=== PATIENT | female | born 1940 | race Caucasian/White ===

== ENCOUNTER 2020-03-27 11:40 | Outpatient (CLI) | payer OTHER, SELFPAY ==
--- NOTE | ~2020-03-27 | XR_ITS ---
XR hip RT min 2V DATE: 03/27/2020 12:16 INDICATION: Right hip pain. No injury. TECHNIQUE: AP and lateral views COMPARISON: None FINDINGS: Diffuse osteopenia. Mild osteitis pubis. The right sacroiliac joint is intact. Right hip joint space appears relatively p reserved. No fracture, dislocation, avascular necrosis or bone destruction of the right hip is evident. IMPRESSION: Osteopenia Mild osteitis pubis Reviewed, dictated and finalized at location A.
[2020-03-27 12:14] LABS: Hemoglobin A1C 6.2 % (<5.7)
[2020-03-27 12:16] LABS: Alanine Aminotransferase 26 U/L (4-35); Albumin Level 4.7 g/dL (3.5-5.1); Alkaline Phosphatase 67 U/L (38-126); Aspartate Amino Transferase 30 U/L (14-36); Bilirubin,Total 0.5 mg/dL (0.2-1.3); Blood Urea Nitrogen 19 mg/dL (7-17); Calcium 9.4 mg/dL (8.4-10.2); Carbon Dioxide 27 mmol/L (22-30); Chloride 101 mmol/L (98-107); Cholesterol 150 mg/dL (0-200); Estimated Glomerular Filt Rate 53; Glucose 111 mg/dL (65-105); HDL Direct 43 mg/dL; Potassium 3.8 mmol/L (3.4-5.0); Sodium 137 mmol/L (137-145); Triglycerides 219 mg/dL (<150)
[2020-03-27 12:25] LABS: Add Urine Microscopic? NO; Appearance Urine Clear (Clear); Bilirubin Urine Negative (Negative); Blood Urine Negative (Negative); Color Urine Yellow (Yellow); Glucose Urine UA Negative (Negative); Ketones Urine Negative (Negative); Leukocyte Esterase Ur Negative LEU/UL (Negative); Nitrate Urine Negative (Negative); Protein Urine Negative (Negative); Urobilinogen Urine Negative mg/dL (<2.0)
[2020-03-27 12:27] LABS: LDL Cholesterol Direct 71 mg/dL
[2020-03-27 12:47] LABS: Vitamin D 25 Hydroxy 48.7 ng/mL
== END 2020-03-27 11:41 | disposition home or self-care (01) ==
LOC: ANHLAB 11:41
PROVIDERS: PCP Internal Medicine; Visit Provider Internal Medicine
DX: M25.551 Pain in right hip (principal); N18.3 Chronic kidney disease, stage 3 (moderate); I10 Essential (primary) hypertension; E11.9 Type 2 diabetes mellitus without complications; E78.5 Hyperlipidemia, unspecified; R35.0 Frequency of micturition; E55.9 Vitamin D deficiency, unspecified; Z51.81 Encounter for therapeutic drug level monitoring
CPT/HCPCS: 36415; 73502; 80053; 80061; 81003; 82306; 83036

== ENCOUNTER 2020-06-26 15:31 | Outpatient (CLI) | payer OTHER, SELFPAY ==
--- NOTE | ~2020-06-26 | XR_ITS ---
EXAMINATION: XR lumbar spine 2-3V DATE: 06/26/2020 15:55 INDICATION: Dorsalgia, unspecified, low back pain TECHNIQUE: Anteroposterior and lateral views of the lumbar spine, and cone-down lateral view of the l umbosacral junction were obtained. COMPARISON: CT, 06/14/2015 FINDINGS: Bone alignment is normal. There is no fracture. There is moderate loss of intervertebral di sc space height at L4-5 and severe loss of intervertebral disc space height at L5-S1. The vertebral b alpesh heights are normal. There is moderate facet osteoarthritis of the lower lumbar spine. A moderate volume of colonic stool is present. The bowel gas pattern is normal. A gallstone is noted in the righ t upper quadrant. Calcified atherosclerosis is also noted. IMPRESSION: 1. Severe lumbar spondylosis without acute findings or significant interval change. Reviewed, dictated and finalized at location A. IMPRESSION: 1. Severe lumbar spondylosis without acute findings or significant interval enrrique nge.
== END 2020-06-26 15:32 | disposition home or self-care (01) ==
PROVIDERS: PCP Internal Medicine; Visit Provider Internal Medicine
DX: M47.896 Other spondylosis, lumbar region (principal)
CPT/HCPCS: 72100

== ENCOUNTER 2020-07-08 08:01 | Outpatient (CLI) | payer OTHER, SELFPAY ==
--- NOTE | ~2020-07-08 | MR_ITS ---
EXAMINATION: MR lumbar spine wo con DATE: 07/08/2020 08:53 INDICATION: Radiculopathy. Low back pain. TECHNIQUE: Magnetic resonance imaging (MRI) of the lumbar spine was performed without intravenous con trast. Sequences included sagittal T2-weighted FSE, sagittal T2-weighted FS FSE, sagittal T1-weighted FSE, and axial T2-weighted FSE. COMPARISON: CT abdomen dated 06/28/2015 and lumbar spine radiographs dated 06/26/2020 FINDINGS: Alignment is normal. Vertebral body heights are normal. Diffuse heterogeneous pattern of red and yell ow marrow. Severe disc height loss at L5-S1. Moderate disc height loss at L4-L5. Mild disc height los s at T11-T12 and L3-L4. Mild disc desiccation without significant disc height loss at L1-L2 and L2-L3 . The conus medullaris terminates at L2. There is normal signal in the caudal spinal cord. There are bilateral T2 hyperintense renal cysts as well as a 9 mm T2 hypointense proteinaceous/hemorrhagic cyst with corresponding increased density on prior CT. Paravertebral soft tissues are unremarkable. The f ollowing disc levels are specifically discussed: T12-L1: The disc does not extend beyond the endplate margin. There is mild left and moderate right fa cet joint osteoarthritis. There is no neural foraminal stenosis. There is no central canal stenosis. L1-L2: Minimal right paracentral disc protrusion. There is mild left and moderate right facet joint o steoarthritis. There is no neural foraminal stenosis. There is no central canal stenosis. L2-L3: Disc is minimally bulging. There is mild bilateral facet joint osteoarthritis. There is no saul ral foraminal stenosis. There is no central canal stenosis. L3-L4: Disc is bulging with superimposed annular fissure and central to right foraminal zone disc ext rusion with disc material extending couple millimeters cephalad and caudal to the level of the endpla kristofer. There is hypertrophy of the ligamentum flavum. There is moderate bilateral facet joint osteoart hritis. There is moderate bilateral neural foraminal stenosis. There is moderate central canal stenos is. L4-L5: Disc is bulging.. There is moderate to severe bilateral facet joint osteoarthritis. There is m oderate left and mild to moderate right neural foraminal stenosis. There is mild to moderate central canal stenosis. L5-S1: Disc is mildly bulging with an annular fissure. There is moderate bilateral facet joint osteoa rthritis. There is mild to moderate bilateral neural foraminal stenosis. There is mild central canal stenosis. IMPRESSION: 1. Mild upper to severe lower lumbar spondylosis. Reviewed, dictated and finalized at location A.
== END 2020-07-08 08:02 | disposition home or self-care (01) ==
PROVIDERS: PCP Internal Medicine; Visit Provider Nurse Practitioner Adult Health
DX: M47.26 Other spondylosis with radiculopathy, lumbar region (principal)
CPT/HCPCS: 72148

== ENCOUNTER 2020-12-04 10:10 | Outpatient (CLI) | payer OTHER, SELFPAY ==
[2020-12-04 11:03] LABS: Add Urine Microscopic? YES; Appearance Urine Clear (Clear); Bilirubin Urine Negative (Negative); Blood Urine Negative (Negative); Color Urine Yellow (Yellow); Glucose Urine UA Negative (Negative); Ketones Urine Negative (Negative); Leukocyte Esterase Ur Negative LEU/UL (Negative); Nitrate Urine Negative (Negative); Protein Urine 2+ mg/dL (Negative); Specific Grav Ur 1.012 (1.001-1.035); Squamous Epithelial Cell Urine Rare /hpf (Few); Urobilinogen Urine Negative mg/dL (<2.0); WBC Urine 0-3 /hpf
== END 2020-12-04 10:11 | disposition home or self-care (01) ==
LOC: ANHLAB 10:11
PROVIDERS: PCP Internal Medicine; Visit Provider Internal Medicine
DX: R30.0 Dysuria (principal)
CPT/HCPCS: 81001

== ENCOUNTER 2020-12-11 11:12 | Outpatient (CLI) | payer OTHER, SELFPAY ==
--- NOTE | ~2020-12-11 | XR_ITS ---
EXAMINATION: XR abdomen/kub 1V EXAM DATE: 12/11/2020 11:49 INDICATION: R10.2 - Pelvic and perineal pain urinary urgency with pain. TECHNIQUE: Frontal projection(s) of the abdomen for interpretation. Correlation is made to CT abdomen 2014. FINDINGS: Dense right upper lobe calcification is a gallstone. No calcifications identified overlying the renal contours, but they are partly obscured by colonic stool and gas. Moderate amount of coloni c stool and gas present. No small bowel dilation. Mild to moderate bony degenerative changes. There i s no organomegaly. Lung bases unremarkable. IMPRESSION: Cholelithiasis. Reviewed, dictated and finalized at location B. ER CRANE LADLE IMPRESSION: Cholelithiasis.
--- NOTE | ~2020-12-11 | US_ITS ---
EXAMINATION: US pelvic complete EXAM DATE: 12/11/2020 11:48 INDICATION: R10.2 - Pelvic and perineal pain. TECHNIQUE: Pelvic transabdominal sonogram was performed. There are multiple grayscale and Doppler im ages available for interpretation. There is no prior study for comparison. FINDINGS: Bladder is undistended. Uterus not identified. There is no free pelvic fluid. No adnexal ma ss was identified. IMPRESSION: Unremarkable exam. Uterus, ovaries not identified. Reviewed, dictated and finalized at location B. OLE CUTTER MACHINE
== END 2020-12-11 11:13 | disposition home or self-care (01) ==
PROVIDERS: PCP Internal Medicine; Visit Provider Internal Medicine
DX: R10.2 Pelvic and perineal pain (principal); K80.20 Calculus of gallbladder without cholecystitis without obstruction
CPT/HCPCS: 74018; 76856

== ENCOUNTER 2021-01-14 07:24 | Outpatient (CLI) | payer OTHER, SELFPAY ==
[2021-01-14 08:12] LABS: Hemoglobin A1C 5.5 % (<5.7)
[2021-01-14 08:13] LABS: Alanine Aminotransferase 19 U/L (4-35); Albumin Level 4.6 g/dL (3.5-5.1); Alkaline Phosphatase 62 U/L (38-126); Anion Gap 5 mmol/L (8-16); Aspartate Amino Transferase 24 U/L (14-36); Bilirubin,Total 0.5 mg/dL (0.2-1.3); Blood Urea Nitrogen 20 mg/dL (7-17); Calcium 9.3 mg/dL (8.4-10.2); Carbon Dioxide 31 mmol/L (22-30); Chloride 106 mmol/L (98-107); Cholesterol 146 mg/dL (0-200); Estimated Glomerular Filt Rate 53; Glucose 124 mg/dL (65-105); HDL Direct 45 mg/dL; Sodium 142 mmol/L (137-145); Triglycerides 140 mg/dL (<150)
[2021-01-14 08:24] LABS: LDL Cholesterol Direct 72 mg/dL
== END 2021-01-14 07:25 | disposition home or self-care (01) ==
PROVIDERS: PCP Internal Medicine; Visit Provider Nurse Practitioner
DX: E78.2 Mixed hyperlipidemia (principal); E11.9 Type 2 diabetes mellitus without complications
CPT/HCPCS: 36415; 80053; 80061; 83036

== ENCOUNTER 2021-06-28 09:53 | Outpatient (CLI) | payer OTHER, SELFPAY ==
[2021-06-28 10:41] LABS: Alanine Aminotransferase 21 U/L (4-35); Alkaline Phosphatase 58 U/L (38-126); Anion Gap 11 mmol/L (8-16); Aspartate Amino Transferase 27 U/L (14-36); Bilirubin,Total 0.5 mg/dL (0.2-1.3); Blood Urea Nitrogen 28 mg/dL (7-17); Calcium 10.4 mg/dL (8.4-10.2); Carbon Dioxide 30 mmol/L (22-30); Chloride 101 mmol/L (98-107); Cholesterol 163 mg/dL (0-200); Estimated Glomerular Filt Rate 53; Glucose 110 mg/dL (65-110); HDL Direct 44 mg/dL; Hemoglobin A1C 5.8 % (<5.7); Potassium 3.8 mmol/L (3.4-5.0); Sodium 142 mmol/L (137-145); Triglycerides 234 mg/dL (<150)
[2021-06-28 10:53] LABS: LDL Cholesterol Direct 86 mg/dL
[2021-06-28 11:24] LABS: Vitamin D 25 Hydroxy 43.8 ng/mL
== END 2021-06-28 09:54 | disposition home or self-care (01) ==
PROVIDERS: PCP Internal Medicine; Visit Provider Internal Medicine
DX: E78.5 Hyperlipidemia, unspecified (principal); E11.9 Type 2 diabetes mellitus without complications; E55.9 Vitamin D deficiency, unspecified; I10 Essential (primary) hypertension; Z51.81 Encounter for therapeutic drug level monitoring
CPT/HCPCS: 36415; 80053; 80061; 82306; 83036

== ENCOUNTER 2021-08-23 12:30 | Outpatient (RCR) | payer OTHER, SELFPAY ==
--- NOTE | 2021-07-12 14:28 | OTOPEVAL ---
OCCUPATIONAL THERAPY INITIAL EVALUATION REPORT 07/12/21 Thank you for referring Thao Castañeda to [facility] The patient is scheduled to be seen for therapy? 0-1x/week for 4 weeks. Please review, sign, date and return this plan of care ABEL. I agree with and certify that the following plan of care is medically necessary. Referring Physician Date Referring Provider: Stephanie Andrew, SELENA *OT Outpatient Evaluation Start: 07/12/21 13:30 Outpatient Past Medical History Past Medical History Source of Past Medical History Recalled from Previous Visit, Confirmed with Patient/Family Neurological History Hx Transient Ischemic Attacks (TIA) Yes Cardiovascular History Hx Hypertension Yes Respiratory History Hx Respiratory Disorders No Significant History Gastrointestinal History Hx Gastrointestinal Disorders No Significant History Genitourinary History Hx Genitourinary Disorders No Significant History Endocrine History Hx Diabetes Yes: Type II Evaluation Information Problem Diagnosis Trigger finger Subjective Information Patient reports trigger finger Query Text:As Reported By Patient/ symptoms in the right middle Family finger. States its been going on for about a month. Notes triggering happens multiple times a day when she casing in line feeder. For example, when changing sheets, picking up laundry, etc. Prior Level of Function Activity Level (Last 3 Months) Hand Dominance Right Activity of Daily Living Ability Independent Pain Assessment Timing of Pain Assessment Timing of Pain Assessment Assessment Pain Scale Pain Scale Used Numeric (1 - 10) Self Report Pain Assessment Right Hand(s) Reported Pain Level 0 Lowest Pain Intensity 0 Greatest Pain Intensity 6 Pain Score Pain Score 0: Self Report Additional Pain Score Comments 6/10 when the finger triggers. Patient reports this happens multiple times a day. Upper Extremity Range of Motion Finger Range of Motion Left Reason Not Measured WNL/Left Right Finger Range of Motion Comments Full fist intact. Hook fist: 2cm gap with middle finger. Palpation Assessment Palpation Palpation Tender, palpable nodule at the A1 domo. Splint/Brace/Cast Assessment Splint and Bracing Assessment Right Finger, Middle Fabrication Clinician Made Splint/Brace/Cast Comments MCP immobilizer Reason For Splint/Brace/Cast Optimal Positioning,Pain
--- NOTE | 2021-08-09 11:02 | OTOPEVAL ---
OCCUPATIONAL THERAPY RE-EVALUATION AND POC UPDATE 08/09/21 Thao presents for OT re-evaluation following 1 month of hand therapy. OT hand been focusing on immobilizatio via splinting, thermal modalities, and active/passive ROM to help improve flexibility and reduce inflammation of the flexor tendon. She no longer has a palpable nodule at the A1 domo, but does have intermittent instances of triggering. This has greatly improved from several instances of triggering per day at the start of care. Continued skilled OT indicated for an additional month to continue to use modalities for inflammation reduction, modifications of her splint schedule, and eventually progression to some gentle strengthening as the tendon allows. Thank you for referring Thao Castañeda to [facility].? The patient is scheduled to be seen for continued occupational therapy? 0-1x/week for 4 weeks. Please review, sign, date and return this plan of care ABEL. I agree with and certify that the following plan of care is medically necessary. Referring Physician Date Referring Provider: Stephanie Andrew, MATEUSC *OT Outpatient Re-Evaluation Start: 07/12/21 13:30 Problem Diagnosis Trigger finger Subjective Information Patient reports that she only Query Text:As Reported By Patient/ have symptoms of triggering a Family few times a week compared to several times a day at the start of care. She has been wearing an MCP immobilizer to help rest the flexor tendon at the A1 domo. She wears the splint when doing gross gripping tasks such as laundry and changing sheets. She verbalizes good compliance with the HEP. Pain Assessment Timing of Pain Assessment Timing of Pain Assessment Re-assessment Pain Scale Pain Scale Used Numeric (1 - 10) Self Report Pain Assessment Right Hand(s) Reported Pain Level 0 Lowest Pain Intensity 0 Greatest Pain Intensity 3 Pain Score Pain Score 0: Self Report Additional Pain Score Comments Pain decreased from 6/10. No pain at rest, just when the finger gets stuck. Upper Extremity Range of Motion Finger Range of Motion Right Finger Range of Motion Comments Full fist intact. Hook fist has returned to normal limits. At the start of care she had a 2 cm gap with the middle finger. Hand Equine Manager/Pinch Strength Assessment Hand Left Equine Manager Strength (lbs) 33.66 Palmar Pinch Strength (lbs) 3 Right Equine Manager Strength (lbs) 27.33 Palmar Pinch Strength (lbs) 3.33 Hand Equine Manager/Pinch Strength Comments No pain or triggering with
--- NOTE | 2021-09-06 12:42 | PCOTNOTE ---
OCCUPATIONAL THERAPY DISCHARGE NOTIFICATION 09/06/21 Patient:Thao Castañeda Date of :1940 Thao was initially evaluated by OT on 07/12/21 to begin treatment for trigger finger. She was seen 1x/week for 7 weeks. Treatments consisted of splinting, modalities, ROM, and strengthening. For the last 2 weeks the patient has found that she has not needed to wear her splint and she is able to use her hand for all ADLs without any signs of triggering. Please refer to most recent progress note, dated 08/09/21, for more detailed findings. We have decided to cancel the formal OT re-evaluation as she no longer is experiencing symptoms. Discussed with the patient that if her symptoms return, she should begin to wear her splint again and make an appointment with an orthopedic MD for injections. She verbalizes excellent understanding of all materials. D/C with patient independent with HEP. The goals have been met. Thank you for referring this patient to [facility]. Please review, sign, date and return this discharge summary ABEL. I have been updated about the patient's current status and I agree with discharge from the above service at this time. Referring Physician Date Referring Provider: Stephanie Andrew, MATEUSC
== END 2021-09-10 09:55 | disposition home or self-care (01) ==
LOC: ANHOT 12:30
PROVIDERS: PCP Internal Medicine; Visit Provider Nurse Practitioner
DX: M65.30 Trigger finger, unspecified finger (principal)
CPT/HCPCS: 97018; 97035; 97110; 97140; 97165; L3933

== ENCOUNTER 2021-09-19 09:05 | Outpatient (CLI) | payer OTHER, SELFPAY ==
--- NOTE | ~2021-09-19 | US_ITS ---
US axilla BI DATE: 09/19/2021 09:45 INDICATION: Bilateral axillary lymph nodes TECHNIQUE: Real time imaging of both axillary areas COMPARISON: None FINDINGS: Bilateral axillary lymph nodes are noted, with relatively uniform homogeneous echotexture a nd cortical thickness, without any suspicious sonographic findings. These measure up to 2.1 x 0.9 cm on the right and up to 2.0 x 1.0 cm on the left. IMPRESSION: Nonspecific bilateral sonographically unremarkable axillary lymph nodes Reviewed, dictated and finalized at Location A. Reviewed, dictated and finalized at location A. N ASSISTANT IMPRESSION: Nonspecific bilateral sonographically unremarkable axillary lymph n odes
== END 2021-09-19 09:06 | disposition home or self-care (01) ==
LOC: ANHIMG 09:06
PROVIDERS: PCP Internal Medicine; Visit Provider Internal Medicine
DX: R59.0 Localized enlarged lymph nodes (principal); R93.89 Abnormal findings on diagnostic imaging of other specified body structures
CPT/HCPCS: 76882

== ENCOUNTER 2022-01-07 07:19 | Outpatient (CLI) | payer OTHER, SELFPAY ==
[2022-01-07 08:22] LABS: Hemoglobin A1C 5.8 % (<5.7)
[2022-01-07 08:24] LABS: Alanine Aminotransferase 18 U/L (4-35); Albumin Level 4.7 g/dL (3.5-5.1); Alkaline Phosphatase 61 U/L (38-126); Anion Gap 8 mmol/L (8-16); Aspartate Amino Transferase 26 U/L (14-36); Bilirubin,Total 0.5 mg/dL (0.2-1.3); Blood Urea Nitrogen 23 mg/dL (7-17); Calcium 9.3 mg/dL (8.4-10.2); Carbon Dioxide 30 mmol/L (22-30); Chloride 103 mmol/L (98-107); Cholesterol 168 mg/dL (0-200); Estimated Glomerular Filt Rate 53; Glucose 136 mg/dL (65-110); HDL Direct 40 mg/dL; Potassium 3.9 mmol/L (3.4-5.0); Sodium 141 mmol/L (137-145); Triglycerides 184 mg/dL (<150)
[2022-01-07 08:31] LABS: Creatinine Urine 38.7 mg/dL
[2022-01-07 08:35] LABS: MALB Creatinine Ratio 81.4 mg/g (0-30); Microalbumin Urine Random 31.5 mg/L (0-16.7)
[2022-01-07 08:36] LABS: LDL Cholesterol Direct 77 mg/dL
[2022-01-07 08:43] LABS: Vitamin D 25 Hydroxy 83.9 ng/mL
== END 2022-01-07 07:20 | disposition home or self-care (01) ==
PROVIDERS: PCP Internal Medicine; Visit Provider Nurse Practitioner
DX: E78.2 Mixed hyperlipidemia (principal); E11.9 Type 2 diabetes mellitus without complications; E55.9 Vitamin D deficiency, unspecified
CPT/HCPCS: 36415; 80053; 80061; 82043; 82306; 83036

== ENCOUNTER 2022-07-18 07:25 | Outpatient (CLI) | payer OTHER, SELFPAY ==
[2022-07-18 07:52] LABS: Alanine Aminotransferase 22 U/L (6-35); Albumin Level 4.7 g/dL (3.5-5.1); Alkaline Phosphatase 58 U/L (38-126); Anion Gap 11 mmol/L (8-16); Aspartate Amino Transferase 28 U/L (14-36); Bilirubin,Total 0.6 mg/dL (0.2-1.3); Blood Urea Nitrogen 26 mg/dL (7-17); Calcium 9.5 mg/dL (8.4-10.2); Carbon Dioxide 28 mmol/L (22-30); Chloride 102 mmol/L (98-107); Cholesterol 144 mg/dL (0-200); Estimated Glomerular Filt Rate 47; Glucose 134 mg/dL (65-110); HDL Direct 45 mg/dL; Potassium 4.1 mmol/L (3.4-5.0); Sodium 141 mmol/L (137-145); Triglycerides 123 mg/dL (<150)
[2022-07-18 08:03] LABS: LDL Cholesterol Direct 67 mg/dL
[2022-07-18 09:21] LABS: Vitamin D 25 Hydroxy 88.6 ng/mL
[2022-07-18 09:36] LABS: Hemoglobin A1C 6.1 % (<5.7)
== END 2022-07-18 07:26 | disposition home or self-care (01) ==
PROVIDERS: PCP Internal Medicine; Visit Provider Internal Medicine
DX: E78.5 Hyperlipidemia, unspecified (principal); I10 Essential (primary) hypertension; E55.9 Vitamin D deficiency, unspecified; E11.9 Type 2 diabetes mellitus without complications
CPT/HCPCS: 36415; 80053; 80061; 82306; 83036

== ENCOUNTER 2022-11-07 15:49 | Outpatient (CLI) | payer OTHER, SELFPAY ==
[2022-11-07 16:05] LABS: Hematocrit 38.2 % (37.0-47.0); Hemoglobin 12.8 g/dL (12.0-15.0); Immature Platelet Fraction Pct 3.7 % (0.9-11.2); Mean Corpuscular HGB Conc 33.5 g/dl (32-36); Mean Corpuscular Hemoglobin 30.9 pg (26-34); Mean Corpuscular Volume 92.3 fl (80-100); Platelet Count Result 143 k/mm3 (150-375); Red Blood Count 4.14 M/mm3 (4.2-5.4); Red Cell Distribution Width 13.2 % (11.5-14.5); White Blood Count 21.3 K/mm3 (4.5-10.0)
[2022-11-07 16:15] LABS: Alanine Aminotransferase 19 U/L (6-35); Albumin Level 4.6 g/dL (3.5-5.1); Alkaline Phosphatase 58 U/L (38-126); Anion Gap 7 mmol/L (8-16); Aspartate Amino Transferase 27 U/L (14-36); Bilirubin,Total 0.4 mg/dL (0.2-1.3); Blood Urea Nitrogen 27 mg/dL (7-17); Calcium 9.2 mg/dL (8.4-10.2); Carbon Dioxide 30 mmol/L (22-30); Chloride 99 mmol/L (98-107); Cholesterol 144 mg/dL (0-200); Estimated Glomerular Filt Rate 53; Glucose 122 mg/dL (65-110); HDL Direct 34 mg/dL; Potassium 3.5 mmol/L (3.4-5.0); Sodium 136 mmol/L (137-145); Triglycerides 303 mg/dL (<150)
[2022-11-07 16:25] LABS: Eosinophils Absolute Manual 0.21 K/mm3 (0.02-0.5); Eosinophils Percent Manual 1 % (0-4); LDL Cholesterol Direct 62 mg/dL; Lymphocytes Absolute Manual 17.25 K/mm3 (1.1-4.5); Lymphocytes Percent Manual 81 % (18-44); Monocytes Absolute Manual 0.42 K/mm3 (0.1-0.90); Monocytes Percent Manual 2 % (3-9); Neutrophils Percent Manual 16 % (46-73); Total Cells Counted 100
[2022-11-07 16:27] LABS: Atypical Lymphocytes Present; Platelet Estimate Adequate (Adequate); Schistocytes None Seen (NORMAL)
[2022-11-07 16:28] LABS: Smudge Cells MODERATE
[2022-11-07 16:38] LABS: Hemoglobin A1C 5.6 % (<5.7)
== END 2022-11-07 15:50 | disposition home or self-care (01) ==
PROVIDERS: PCP Internal Medicine; Visit Provider Nurse Practitioner
DX: C91.10 Chronic lymphocytic leukemia of B-cell type not having achieved remission (principal); E78.5 Hyperlipidemia, unspecified; R73.03 Prediabetes
CPT/HCPCS: 36415; 80053; 80061; 83036; 85025; 85055

== ENCOUNTER 2023-04-09 02:42 | Day surgery (SDC) | payer OTHER, SELFPAY ==
[2023-03-24 14:12] VITALS: BMI 24.5
[2023-04-09 07:21] VITALS: BP 156/66; PULSE 80; RESP 20; TEMP 36.5; O2SAT 98; BMI 24.0
[2023-04-09] MEDS: LACTATED RINGERS 1,000 ML 150 ML IV CONT (07:31)
--- NOTE | 2023-04-09 08:05 | PM.HPGS ---
History of Present Illness History of Present Illness Consent: Risks, benefits, and alternatives have been discussed and questions answered. Patient agrees to proceed with procedure. Chief complaint: positive cologuard test Narrative: Thao Castañeda is a 82 year old female Presents for screening colonoscopy. Patient recently had Cologuard test that was found to be positive. Patient reports her current weight appetite and bowel movements are normal. She denies abdominal pain. She has had no bleeding. Family history noncontributory. Review of Systems Review of Systems: Review of systems noncontributory. [facility] Past Medical History Medical History Chronic kidney disease, stage 3 (moderate) (05/19/19) Essential (primary) hypertension Hx-TIA (transient ischemic attack) Mixed hyperlipidemia Trigger finger, right middle finger Type 2 diabetes mellitus without complications Surgical History Surgical History H/O: hysterectomy Family History Family History Sibling Hypertension Family history of elevated blood lipids Family history of malignant neoplasm of bone Patient's brother is Mother Hypertension Family history of dementia Patient's mother is Father Hypertension Family history of elevated blood lipids Patient's father is Family history of kidney disease Family history of heart disease in male family member before age 55 Social History Social History Smoking status: Never smoker Second hand tobacco smoke exposure: No Alcohol intake: current Alcohol use details: 2 per month Substance use: never Substance use type: does not use Lack of Transportation: No Lack of Food: Never True Current Housing: I Have Housing Concerned About Future Housing: No Difficulty Paying Gas/Electric Bills: No Difficulty Paying for Meds: No Currently Unemployed: No Education: High School Diploma/GED Difficulty w/ Childcare or Family Care: No Living arrangements: with family Spiritual care concerns: No Meds Home Medications and Allergies Home Medications Medication Instructions Recorded Confirmed Type aspirin 81 mg tablet,delayed 81 mg PO DAILY 12/16/19 03/24/23 History release (Adult Low Dose Aspirin) [id number]-[id number]-[id number] tablet 1 tablet PO DAILY 01/02/21 03/24/23 History biotin 1 mg capsule 1 mg PO TID 11/05/22 03/24/23 History hydrochlorothiazide 25 mg tablet See Rx Instructions .Route 11/07/22 03/24/23 Rx .COMPLEX #90 ea lovastatin 40 mg tablet See Rx Instructions .Route 11/07/22 03/24/23 Rx .COMPLEX #90 tabs losartan 100 mg tablet See Rx Instructions .Route 12/08/22 03/24/23 Rx .COMPLEX #90 tabs carvedilol 25 mg tablet See Rx Instructions .Route 03/26/23 04/09/23 Rx .COMPLEX #180 tabs Allergies Allergy/AdvReac Type Severity Reaction Status Date / Time No Known Allergies Allergy Verified 04/09/23 07:17 Vital Signs Vital Signs - 24 hr 04/09/23 07:21 Temperature 97.7 F Pulse Rate 80 Respiratory Rate 20 Blood Pressure 156/66 H Pulse Oximetry 98 Oxygen Delivery Room Air Exam Narrative: Physical exam reveals patient to be alert. Vital signs stable. HEENT exam is unremarkable. Patient is anicteric. Lungs are clear to auscultation and percussion. Heart is without murmur or extra sounds. Abdomen bowel sounds are present soft nontender with no organomegaly. Digital external rectal exam is normal. Assessment and Plan Assessment and plan (1) Positive colorectal cancer screening using Cologuard test: Code(s): R19.5 - Other fecal abnormalities Status: Acute Assessment and Plan: Patient found to have a positive Cologuard test. For this reason col
--- NOTE | 2023-04-09 08:19 | WPDANESEPPF ---
Anes - Initial Pre Proc Eval Procedure: Operation Date: 04/09/23 08:30 Proposed Procedures p Colonoscopy - Galindo Singh MD Date/Time: 04/09/23 08:19 Surgeon: Galindo Singh MD Pre Op Diagnosis: positive cologuard test Patient Data Age: 82 Gender: F Height: 1.6 m Weight: 61.6 kg Last Vital Signs Temp 97.7 F 04/09/23 07:21 Pulse 80 04/09/23 07:21 Resp 20 04/09/23 07:21 BP 156/66 H 04/09/23 07:21 Pulse Ox 98 04/09/23 07:21 O2 Del Method Room Air 04/09/23 07:21 Allergies Allergy/AdvReac Type Severity Reaction Status Date / Time No Known Allergies Allergy Verified 04/09/23 07:17 Home Medications Medication Instructions Recorded Confirmed Type aspirin 81 mg tablet,delayed 81 mg PO DAILY 12/16/19 03/24/23 History release (Adult Low Dose Aspirin) rsxywctjwidg-vtxvegij-pmyzxw tablet 1 tablet PO DAILY 01/02/21 03/24/23 History biotin 1 mg capsule 1 mg PO TID 11/05/22 03/24/23 History hydrochlorothiazide 25 mg tablet See Rx Instructions .Route 11/07/22 03/24/23 Rx .COMPLEX #90 ea lovastatin 40 mg tablet See Rx Instructions .Route 11/07/22 03/24/23 Rx .COMPLEX #90 tabs losartan 100 mg tablet See Rx Instructions .Route 12/08/22 03/24/23 Rx .COMPLEX #90 tabs carvedilol 25 mg tablet See Rx Instructions .Route 03/26/23 04/09/23 Rx .COMPLEX #180 tabs Patient hx anesthesia problems: none Family hx anesthesia problems: none Results Review: All pre-operative results and documents have been reviewed as part of the pre-operative evaluation. [facility] Past Medical History Medical History Chronic kidney disease, stage 3 (moderate) (05/19/19) Essential (primary) hypertension Hx-TIA (transient ischemic attack) Mixed hyperlipidemia Trigger finger, right middle finger Type 2 diabetes mellitus without complications Surgical History Surgical History H/O: hysterectomy Family History Family History Sibling Hypertension Family history of elevated blood lipids Family history of malignant neoplasm of bone Patient's brother is Mother Hypertension Family history of dementia Patient's mother is Father Hypertension Family history of elevated blood lipids Patient's father is Family history of kidney disease Family history of heart disease in male family member before age 55 Social History Social History Smoking status: Never smoker Second hand tobacco smoke exposure: No Alcohol intake: current Alcohol use details: 2 per month Substance use: never Substance use type: does not use Lack of Transportation: No Lack of Food: Never True Current Housing: I Have Housing Concerned About Future Housing: No Difficulty Paying Gas/Electric Bills: No Difficulty Paying for Meds: No Currently Unemployed: No Education: High School Diploma/GED Difficulty w/ Childcare or Family Care: No Living arrangements: with family Spiritual care concerns: No Anes - Eval Final PreProcedure Day of Procedure 04/09/23 08:19 Patient weight: normal Heart: regular rate and rhythm Lungs: clear to auscultation Airway: Mallampati scale class II Neurological: alert and oriented Last oral intake: >/= 8 hours ASA classification: III Emergent: no Anesthetic plan: proceed Anesthesia type and monitoring: general GIVS and standard monitoring Results Review: All pre-operative results and documents have been reviewed as part of the pre-operative evaluation. Informed Consent: The patient's anesthetic plan and its attendant risks and benefits were discussed with the patient/family/POA. Questions were solicited and answers provided to the satisfaction of the patient/family/POA.
[2023-04-09 09:32] VITALS: BP 115/58; PULSE 69; RESP 18; O2SAT 97
[2023-04-09 09:42] VITALS: BP 128/65; PULSE 70; RESP 18; O2SAT 96
[2023-04-09 09:52] VITALS: BP 147/72; PULSE 64; RESP 18; O2SAT 97
== END 2023-04-09 10:03 | disposition home or self-care (01) ==
PROVIDERS: PCP Family Medicine; Visit Provider Internal Medicine Gastroenterology
PROC: 0DJD8ZZ Inspection of Lower Intestinal Tract, Via Natural or Artificial Opening Endoscopic (ICD-10-PCS; CPT 45378; principal; 2023-04-09 08:30)
DX: R19.5 Other fecal abnormalities (principal); D12.2 Benign neoplasm of ascending colon; K63.5 Polyp of colon; K57.30 Diverticulosis of large intestine without perforation or abscess without bleeding; K64.8 Other hemorrhoids; I12.9 Hypertensive chronic kidney disease with stage 1 through stage 4 chronic kidney disease, or unspecified chronic kidney disease; E11.22 Type 2 diabetes mellitus with diabetic chronic kidney disease; N18.30 Chronic kidney disease, stage 3 unspecified; E78.2 Mixed hyperlipidemia; Z86.73 Personal history of transient ischemic attack (TIA), and cerebral infarction without residual deficits; Z79.82 Long term (current) use of aspirin
CPT/HCPCS: 45385; 88305; J2704; J7120

== ENCOUNTER 2023-05-04 15:39 | Outpatient (CLI) | payer OTHER, SELFPAY ==
--- NOTE | ~2023-05-04 | XR_ITS ---
EXAMINATION: XR ankle LT 2V, XR tibia fibula LT 2V DATE: 05/04/2023 16:01 INDICATION: Swelling and bruising at the mid left lower leg and ankle TECHNIQUE: 1. Anteroposterior and lateral views of the left lower leg were obtained. 2. Anteroposterior and lateral views of the left ankle were obtained. COMPARISON: None. FINDINGS: Bone alignment is normal. No fracture. Joint spaces at the left knee, ankle and mid and hindfoot appe ar relatively preserved. Small Achilles and plantar calcaneal spurs. Mild soft tissue swelling about the ankle and distal lower leg. No ankle joint effusion. IMPRESSION: 1. Small Achilles and plantar calcaneal spurs. No acute osseous abnormality. Reviewed, dictated and finalized at location B. IMPRESSION: 1. Small Achilles and plantar calcaneal spurs. No acute osseous abnormality.
== END 2023-05-04 15:40 | disposition home or self-care (01) ==
LOC: ANHIMG 15:44
PROVIDERS: PCP Family Medicine; Visit Provider Nurse Practitioner Family
DX: S99.919A Unspecified injury of unspecified ankle, initial encounter (principal); X58.XXXA Exposure to other specified factors, initial encounter; M77.32 Calcaneal spur, left foot
CPT/HCPCS: 73590; 73600

== ENCOUNTER 2023-06-05 16:03 | Outpatient (CLI) | payer OTHER, SELFPAY ==
--- NOTE | ~2023-06-05 | US_ITS ---
EXAMINATION: US carotid duplex BI DATE: 06/05/2023 16:59 INDICATION: Carotid bruit. Other specified symptoms and signs involving the circulatory system. TECHNIQUE: Grayscale, color Doppler, and pulsed Doppler images of the cervical carotid arteries were obtained. The degree of vessel stenosis is placed in one of the following categories: normal, <50%, 5 0-69%, >=70% but less than near-occlusion, near-occlusion, or total occlusion. Note that percent sten osis relative to normal distal artery lumen diameter is indirectly measured from velocity measurement s as described by Wally, et al. Radiology 2003; 229:340-346. COMPARISON: Ultrasound 02/26/2015 FINDINGS: RIGHT: The right common carotid artery (CCA) peak systolic velocity (PSV) is 91 cm/s. The right internal car otid artery (ICA) PSV is 77 cm/s. The right ICA end-diastolic velocity (EDV) is 21 cm/s. The right IC A/CCA PSV ratio is 0.8. Grayscale and color Doppler images yield an estimate of <50% diameter reducti on from plaque in the ICA. There is antegrade flow in the right vertebral artery. LEFT: The left CCA PSV is 93 cm/s. The left ICA PSV is 81 cm/s. The left ICA EDV is 20 cm/s. The left ICA/C CA PSV ratio is 0.9. Grayscale and color Doppler images yield an estimate of <50% diameter reduction from plaque in the ICA. There is antegrade flow in the left vertebral artery. IMPRESSION: 1. <50% stenosis in the right internal carotid artery. 2. <50% stenosis in the left internal carotid artery. Reviewed, dictated and finalized at location E.
== END 2023-06-05 16:04 | disposition home or self-care (01) ==
PROVIDERS: PCP Family Medicine; Visit Provider Nurse Practitioner Family
DX: R09.89 Other specified symptoms and signs involving the circulatory and respiratory systems (principal); I65.23 Occlusion and stenosis of bilateral carotid arteries
CPT/HCPCS: 93880

== ENCOUNTER 2023-07-03 11:45 | Outpatient (CLI) | payer OTHER, SELFPAY ==
--- NOTE | ~2023-07-03 | DEXA_ITS ---
Bone Density Report Name: ZEINA HENRIQUEZ Age: 82 Sex: Female Ethnicity: White Date of : 1940 Indication: osteopenia; height loss; cancer; hysterectomy; postmenopausal Referring Provider: CATHERINE BUCHANAN Study: Bone densitometry was performed. Exam Date: July 03, 2023 Accession number: [id number] Bone Density: Region BMD T-score Z-score Classification AP Spine(L1-L4) 1.023 -0.2 2.6 Normal Femoral Neck (Left) 0.500 -3.1 -0.6 Osteoporosis Total Hip (Left) 0.631 -2.5 -0.2 Osteoporosis Femoral Neck (Right) 0.526 -2.9 -0.4 Osteoporosis Total Hip (Right) 0.672 -2.2 0.1 Osteopenia Total Hip Mean 0.651 -2.4 -0.1 Osteopenia World Health Organization criteria for BMD impression classify patients as: Normal (T-score at or above -1.0), Osteopenia (T-score between -1.0 and -2.5), or Osteoporosis (T-score at or below -2.5). 10-year Fracture Risk: FRAX not reported because: Some T-score for Spine Total or Hip Total or Femoral Neck at or below -2.5 Previous Exams: Region Exam Age BMD T-score BMD Change BMD Change Date g/cm2 vs Baseline vs Previous AP Spine (L1-L4) 07/03/2023 82 1.023 -0.2 0.117 (12.9%)* 0.117 (12.9%)* 12/28/2018 78 0.906 -1.3 Total Hip(Left) 07/03/2023 82 0.631 -2.5 -0.043 (-6.4%) -0.043 (-6.4%) 12/28/2018 78 0.674 -2.2 Total Hip(Right) 07/03/2023 82 0.672 -2.2 -0.091 (-11.9% -0.091 (-11.9% 12/28/2018 78 0.762 -1.5 *Denotes significance at 95% confidence level, LSC for AP Spine = 0.022 g/cm2, LSC for Total Hip = 0.027 g/cm2 Clinical Information Provided by Patient: Has the following medical conditions: Cancer, Hysterectomy Patient maximum height was 64.5 Menopause Age: 40 Onset of menses at age 9 Number of children 5 Impression: The patient has osteoporosis, based on the Left Femoral Neck T-score. The BMD for the Total Hip(Left) decreased, changing by -6.4% since the last DXA exam. The BMD for the Total Hip(Right) decreased, changing by -11.9% since the last DXA exam. Discussion: INCREASED RISK OF FRACTURE. BONE DENSITY IS UNDESIRABLY LOW AT ONE OR MORE SKELETAL SITES, CONSISTENT WITH POSTMENOPAUSAL OSTEOPOROSIS. This patient's lowest T-score meets the World Health Organization's (WHO) criteria for osteoporosis at one or more sites (T-score -2.5 or below). In untreated patients, the risk of osteoporotic fracture increases approximately two-fold for each 1.0 SD decrease in T-score. Low bone dens
== END 2023-07-03 11:46 | disposition home or self-care (01) ==
LOC: ANHIMG 11:46
PROVIDERS: PCP Family Medicine; Visit Provider Family Medicine
DX: Z78.0 Asymptomatic menopausal state (principal); M81.0 Age-related osteoporosis without current pathological fracture; M85.851 Other specified disorders of bone density and structure, right thigh
CPT/HCPCS: 77080

== ENCOUNTER 2023-08-24 08:42 | Outpatient (CLI) | payer OTHER, SELFPAY ==
[2023-08-24 09:44] LABS: Hemoglobin A1C 5.9 % (<5.7)
== END 2023-08-24 08:43 | disposition home or self-care (01) ==
PROVIDERS: PCP Family Medicine; Visit Provider Family Medicine
DX: R73.03 Prediabetes (principal)
CPT/HCPCS: 36415; 83036

== ENCOUNTER 2024-03-23 07:37 | Outpatient (CLI) | payer OTHER, SELFPAY ==
[2024-03-23 08:43] LABS: Hemoglobin A1C 5.9 % (<5.7)
[2024-03-23 08:53] LABS: Vitamin D 25 Hydroxy 90.2 ng/mL
[2024-03-23 09:04] LABS: Alanine Aminotransferase 15 U/L (6-35); Albumin Level 4.5 g/dL (3.5-5.1); Alkaline Phosphatase 55 U/L (38-126); Anion Gap 9 mmol/L (4-12); Aspartate Amino Transferase 23 U/L (14-36); Bilirubin,Total 0.7 mg/dL (0.2-1.3); Blood Urea Nitrogen 27 mg/dL (7-17); Calcium 9.2 mg/dL (8.4-10.2); Carbon Dioxide 26 mmol/L (22-30); Chloride 105 mmol/L (98-107); Cholesterol 143 mg/dL (0-200); Estimated Glomerular Filt Rate 53; Glucose 125 mg/dL (65-110); HDL Direct 41 mg/dL; Potassium 3.9 mmol/L (3.4-5.0); Sodium 140 mmol/L (137-145); Triglycerides 133 mg/dL (<150)
[2024-03-23 09:15] LABS: LDL Cholesterol Direct 79 mg/dL
== END 2024-03-23 07:38 | disposition home or self-care (01) ==
PROVIDERS: PCP Family Medicine; Visit Provider Family Medicine
DX: C91.10 Chronic lymphocytic leukemia of B-cell type not having achieved remission (principal); E55.9 Vitamin D deficiency, unspecified; E78.2 Mixed hyperlipidemia; Z86.73 Personal history of transient ischemic attack (TIA), and cerebral infarction without residual deficits; R73.03 Prediabetes; I12.9 Hypertensive chronic kidney disease with stage 1 through stage 4 chronic kidney disease, or unspecified chronic kidney disease; N18.30 Chronic kidney disease, stage 3 unspecified
CPT/HCPCS: 36415; 80053; 80061; 82306; 82607; 83036; 84443

== ENCOUNTER 2024-08-31 08:05 | Outpatient (CLI) | payer OTHER, SELFPAY ==
[2024-08-31 09:04] LABS: Hematocrit 38.4 % (37.0-47.0); Hemoglobin 12.5 g/dL (12.0-15.0); Immature Platelet Fraction Pct 3.5 % (0.9-11.2); Mean Corpuscular HGB Conc 32.6 g/dl (32-36); Mean Corpuscular Hemoglobin 30.8 pg (26-34); Mean Corpuscular Volume 94.6 fl (80-100); Mean Platelet Volume 10.5 fl (7.4-10.4); Platelet Count Result 125 k/mm3 (150-375); Red Blood Count 4.06 M/mm3 (4.2-5.4); Red Cell Distribution Width 13.6 % (11.5-14.5); White Blood Count 43.5 K/mm3 (4.5-10.0)
[2024-08-31 09:10] LABS: Alanine Aminotransferase 16 U/L (6-35); Albumin Level 4.6 g/dL (3.5-5.1); Alkaline Phosphatase 51 U/L (38-126); Anion Gap 9 mmol/L (4-12); Aspartate Amino Transferase 23 U/L (14-36); Bilirubin,Total 0.7 mg/dL (0.2-1.3); Blood Urea Nitrogen 26 mg/dL (7-17); Calcium 9.2 mg/dL (8.4-10.2); Carbon Dioxide 29 mmol/L (22-30); Chloride 103 mmol/L (98-107); Estimated Glomerular Filt Rate 47; Glucose 108 mg/dL (65-110); Potassium 4.2 mmol/L (3.4-5.0); Sodium 141 mmol/L (137-145)
[2024-08-31 10:31] LABS: Hemoglobin A1C 6.1 % (<5.7)
== END 2024-08-31 08:06 | disposition home or self-care (01) ==
PROVIDERS: PCP Family Medicine; Visit Provider Family Medicine
DX: R73.03 Prediabetes (principal); N18.30 Chronic kidney disease, stage 3 unspecified; C91.10 Chronic lymphocytic leukemia of B-cell type not having achieved remission; R09.89 Other specified symptoms and signs involving the circulatory and respiratory systems; Z86.73 Personal history of transient ischemic attack (TIA), and cerebral infarction without residual deficits; Z53.20 Procedure and treatment not carried out because of patient's decision for unspecified reasons
CPT/HCPCS: 36415; 80053; 83036; 85027; 85055

== ENCOUNTER 2025-03-13 07:41 | Outpatient (CLI) | payer OTHER, SELFPAY ==
--- OUTSIDE RECORDS SUMMARY | 2025-03-13 07:46 | XMS_ITS | Clinical Summary ---
Author Organization [address] Address [facility] [place] [address] Care Team Providers Care Portable Sawmill Operator Name Role Phone Noe Wong MD Primary Care Provider [phone] Allergies No known active allergies Medications lovastatin (MEVACOR) 40 mg tablet take 1 tablet by oral route every day with the evening meal 0 0 04/05/2015 Active aspirin (ASPIR-LOW) 81 mg tablet take 1 tablet by oral route every day 0 0 10/15/2015 Active multivit-minera i-deck-gszkkb (CENTRUM SILVER ULTRA WOMEN'S) tablet take 1 tablet by oral route every day 0 0 10/15/2015 Active hydroCHLOROthia zide (HYDRODIURIL) 25 mg tablet Take 1 tablet (25 mg total) by mouth daily 11/07/2022 Active losartan (COZAAR) 100 mg tablet Take 1 tablet (100 mg total) by mouth daily 08/27/2022 Active methylPREDNISol one (MEDROL) 4 mg tablet Take 1 tablet (4 mg total) by mouth 2 (two) times a day 05/19/2023 Active carvediloL (COREG) 25 mg tablet Take 1 tablet (25 mg total) by mouth 3 (three) times a day 30 tablet 05/22/2023 Active Active Problems Problem Noted Date Diagnosed Date Chronic lymphocytic leukemia of B-cell type not having achieved remission 05/27/2024 Splenomegaly 05/27/2024 Secondary hypertension 05/22/2023 Intervertebral disc disorder with radiculopathy of lumbar region 08/28/2020 Immunizations Immunization Administration Dates Next Due Influenza, Quadrivalent, Hig h Dose, Preservative Free, Intrr 08/09/2020 Surgical History Surgery Date Site/Laterality Comments HYSTERECTOMY US GUIDED BIOPSY LYMPH NODE SUPERFICIAL LEFT 10/28/2022 N/A Medical History Medical History Date Comments Type 2 diabetes mellitus (HCC) Hypertension Family History Medical History Relation Name Comments Bone cancer Brother Prostate cancer Brother Coronary artery disease Father Poonam nary artery disease; Hypertension Father Hypertension; Kidney disease Father Renal disease ; Kidney disease Mother Relation Name Status Comments Brother Father (Age 69) Mother Social History Tobacco Use Types Packs/Day Years Used Date Smoking Tobacco: Never Passive Smoke Exposure: Never Smokeless Tobacco: Never Tobacco Cessation:Counseling Given: Not Answered Alcohol Use Standard Drinks/Week Comments No 0 (1 standard drink = 0.6 oz pur e alcohol) Personal Safety Answer Date Recorded Have you ever been in or are you currently in a harmful physical or emotional relationship or is someone making you feel afraid or unsafe? 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 Gender Identity Not on file Sexual Orientation Not on file Obstetrics History Last Filed Vital Signs Vital Sign Reading Time Taken Comments Blood Pressure 163/83 05/27/2024 11:14 AM CDT Pulse 70 05/27/2024 11:14 AM CDT Temperature 36.5 C (97.7 F) 05/27/2024 11:14 AM CDT Respiratory Rate 18 05/27/2024 11:14 AM CDT Oxygen Saturation 96% 05/27/2024 11:14 AM CDT Inhaled Oxygen Concentration - - Weight 65 kg (143 lb 6.4 oz) 05/27/2024 11:14 AM CDT Height 157.8 cm (5' 2.13) 05/22/2023 10:35 AM C DT Body Mass Index 26.12 05/22/2023 10:35 AM CDT Plan of Treatment Health Maintenance Due Date Last Done Comments Depression Screening 1940 Fall Risk Assessment 1940 DTaP/Tdap/Td Vaccine (1 - Tdap) 1949 Hepatitis B Screening 1956 Zoster Vaccine (1 of 2) 1957 Well Visit 65+ 2003 Covid-19 Vaccine (3 - Pfizer risk series) 01/14/2021 12/17/2020, 11/26/2020 Influenza Vaccine (Season Ended) 2025 08/09/2020, 08/02/2019, 07/02/2018, Additional history exists Pneumococcal vaccine 65+ Completed 07/02/2018, 07/06 Insurance [facility] Care Teams Portable Sawmill Operator Relationship Specialty Start Date End Date Noe Wong MD PCP - General Family Practice 05/22/23
--- OUTSIDE RECORDS SUMMARY | 2025-03-13 07:46 | XMS_ITS | Continuity of Care Document ---
Author Organization [facility] Address [address] [place] [address] Phone Care Team Providers Care Developmental Services Worker Name Role Phone Maty Torres Unavailable Unavailable Procedures Procedure Date Eye Exam & Treatment Dilated Retinal Exam W Interpretation No Office/outpatient Visit, Est Dilated Retinal Exam W Interpretation No BF Plastic Sphcyl Petroleum To +/-4d .12-2d Frames Deluxe Tint Plastic, Non-Hailey Special Base Curve Lens-Index>1.66Plas;>1.80Glas 9 Tax - Medical Vision Svcs Frames Purchases BF Polycarb Sphcyl Petroleum To +/-4d .12-2d Tax - Medical Eye Exam Established Pt No Evidence Of Retinopathy In Prior Year Refraction Eye Exam & Treatment Dilated Retinal Exam W Interpretation Ju BF Plastic Sphcyl Petroleum To +/-4d .12-2d Vision Svcs Frames Purchases Tint Plastic, Non-Hailey Tax - Medical Eye Exam & Treatment Visual Functional Status Assessed Refraction Advance Directives Directive Yes / No Effective Date File Name No Information Encounters Encounter Description Practice Location Reason(s) For Visit Diagnoses Date Provider Providers Copied on Encounter [facility], [address], [place], [place], [id number], [place] tel:[phone] [facility] No Information 6-201 0 Melissa Rutledge. [address], [address], [place], [address], [place]. tel:[phone] Office/outpat ient Visit, Est [facility], [address], [place], [place], [address], [place] tel:[phone] [facility] No Information 0-200 [address], [address], [place], [address], [place]. tel:[phone] [facility], [address], [place], [place], [address], [place] tel:[phone] [facility] No Information 6-200 9 [facility] . [address], [address], [place], [place], [address], [place]. tel:[phone] Consulting Provider: Alea Crane, [address] [place], [address]. tel:[phone] [facility], [address], [place], [place], [address], [place] tel:[phone] [facility] No Information 0 3-200 8 [facility] . [address], [address], [place], [place], [address], [place]. tel:[phone] Referring Provider: Maty Cleveland, [address], [place], [address]. tel:[phone] umanzor Provider: Reny Shafer, [address] [place], [address]. tel:[phone] [facility], [address], [place], [place], [address], [place] tel:[phone] [facility] No Information Jun-0 2200 8 Melissa Rutledge. [address], [place], [address], . tel:[phone] [facility], [address], [place], [place], [address], [place] tel:[phone] [facility] No Information 2 2200 8 Melissa Rutledge. [address] , [address], [place], [place], [facility], [place]. tel:[phone] [facility], [address], [place], [place], [address], [place] tel:[phone] [facility] No Information 0 7 [facility] . [address], [address], [place], [place], [address], . tel:[phone] Referring Provider: Maty Cleveland, [address], [place], [address]. tel:[phone] umanzor Provider: Alea Crane, [address] [place], [place], [facility]. tel:[phone] [facility], [address], [place], [place], [address], [place] tel:[phone] [facility] No Information 0 7 Melissa Villalta [address] , [address], [place], [address], [place]. tel:[phone] Referring Provider: Yury Crane, [address] [facility] [address], [place], [address]. tel:[phone] Family History Family Member Type Diagnosis Age At Onset No Information Payers Payer name Insurance type Covered green party ID Authorkuna alidaanca(s) Medicare [facility] [id number] Social History Type Description Quantity Date Captured Comments Sex Female Smoking Status No Information Chief Complaint And Reason For Visit No Information Reason For Referral Reason For Referral No Information History Of Present Illness Encounter Date Complaint History Of Prese nt Illness No Information Functional Status Date Functional Assessmen t No Information Instructions Date Instruction Additional Infor mation No Information Assessments Type Assessment Date No Information Patient Care Teams Name Effective Dates (start - stop) Status Members No Information
--- OUTSIDE RECORDS SUMMARY | 2025-03-13 07:46 | XMS_ITS | Referral Summary ---
Author Organization [address] Address [facility] [place] [address] Care Team Providers Care Silk Screen Printing Racker Name Role Phone Noe Wong MD Primary Care Provider [phone] Allergies No known active allergies Medications lovastatin (MEVACOR) 40 mg tablet take 1 tablet by oral route every day with the evening meal 0 0 04/05/2015 Active aspirin (ASPIR-LOW) 81 mg tablet take 1 tablet by oral route every day 0 0 10/15/2015 Active multivit-minera q-puet-ockaxq (CENTRUM SILVER ULTRA WOMEN'S) tablet take 1 [...] Hig h Dose, Preservative Free, Intrr 08/09/2020 Social History Tobacco Use Types Packs/Day Years [...] on file 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 Gender Identity Not on file Sexual Orientation Not on file Last Filed Vital Signs Vital Sign Reading [...] 05/22/2023 10:35 AM CDT Plan of Treatment Not on file Insurance [facility] Member Subscriber Plan / Payer ( fective 2018-Present) Name:Jyoti Castañeda Relation to Subscriber:Self Name:Jyoti Castañeda Payer ID:[id number] (NAIC) Type:MEDICARE RISK OTHER Address: [address] [place] [id number] Care Teams Silk Screen Printing Racker Relationship Specialty Start Date End Date Noe Wong MD PCP - General Family Practice 05/22/23
[2025-03-13 08:25] LABS: Hematocrit 40.2 % (37.0-47.0); Hemoglobin 12.7 g/dL (12.0-15.0); Immature Platelet Fraction Pct 3.5 % (0.9-11.2); Mean Corpuscular HGB Conc 31.6 g/dl (32-36); Mean Corpuscular Hemoglobin 29.7 pg (26-34); Mean Corpuscular Volume 93.9 fl (80-100); Mean Platelet Volume 10.4 fl (7.4-10.4); Platelet Count Result 125 k/mm3 (150-375); Red Blood Count 4.28 M/mm3 (4.2-5.4); Red Cell Distribution Width 13.2 % (11.5-14.5)
[2025-03-13 08:55] LABS: Band Neutrophils Percent 1 % (0-6); Lymphocytes Absolute Manual 46.96 K/mm3 (1.1-4.5); Lymphocytes Percent Manual 93 % (18-44); Monocytes Percent Manual 1 % (3-9); Neutrophils Absolute Manual 3.03 K/mm3 (1.3-6.7); Neutrophils Percent Manual 5 % (46-73); Platelet Estimate Slightly Decreased (Adequate); Schistocytes None Seen; Total Cells Counted 100
[2025-03-13 09:01] LABS: Atypical Lymphocytes Present; Smudge Cells PRESENT
[2025-03-13 09:11] LABS: Vitamin D 25 Hydroxy 59.6 ng/mL
[2025-03-13 09:24] LABS: Hemoglobin A1C 5.9 % (<5.7)
[2025-03-13 09:38] LABS: Alanine Aminotransferase 16 U/L (6-35); Albumin Level 4.5 g/dL (3.5-5.1); Alkaline Phosphatase 54 U/L (38-126); Anion Gap 10 mmol/L (4-12); Aspartate Amino Transferase 29 U/L (14-36); Bilirubin,Total 0.6 mg/dL (0.2-1.3); Blood Urea Nitrogen 27 mg/dL (7-17); Calcium 9.5 mg/dL (8.4-10.2); Carbon Dioxide 27 mmol/L (22-30); Chloride 102 mmol/L (98-107); Cholesterol 153 mg/dL (0-200); Estimated Glomerular Filt Rate 50; Glucose 131 mg/dL (65-110); HDL Direct 38 mg/dL; Magnesium 2.2 mg/dL (1.6-2.3); Sodium 139 mmol/L (137-145); Total Protein 7.4 g/dL (6.3-8.2); Triglycerides 150 mg/dL (<150)
[2025-03-13 09:43] LABS: White Blood Count 50.5 K/mm3 (4.5-10.0)
[2025-03-13 09:49] LABS: LDL Cholesterol Direct 69 mg/dL
== END 2025-03-13 07:42 | disposition home or self-care (01) ==
PROVIDERS: PCP Family Medicine; Visit Provider Family Medicine
DX: I12.9 Hypertensive chronic kidney disease with stage 1 through stage 4 chronic kidney disease, or unspecified chronic kidney disease (principal); N18.30 Chronic kidney disease, stage 3 unspecified; E78.2 Mixed hyperlipidemia; R73.03 Prediabetes; E55.9 Vitamin D deficiency, unspecified; Z86.73 Personal history of transient ischemic attack (TIA), and cerebral infarction without residual deficits
CPT/HCPCS: 36415; 80053; 80061; 82172; 82306; 82607; 83036; 83735; 85025; 85055

== ENCOUNTER 2025-09-29 08:34 | Outpatient (CLI) | payer OTHER, SELFPAY ==
--- NOTE | 2025-09-29 | CONSULT_PTH ---
PATIENT: Thao Castañeda LOC: [facility] U#:[id number] AGE/SX: 84/F ROOM: RE09/29/[address]: Noe Wong MD : 1940 BED: DIS: 09/29/2025 SPEC #: [id number] RECD: 09/29/25 09:38 STATUS: AUGIE REMy #: [id number] SORAYA: 09/29/25 00:[address]: Noe Wong DEPT: [facility] Consult RECD BY: Genaro Barillas MLT Tissues: A - Peripheral Smear Procedures: Hematology Consult
--- OUTSIDE RECORDS SUMMARY | 2025-09-29 08:36 | XMS_ITS ---
Author Name Beth SHAW, MRS. [facility] Address [address] [place] [address] Phone [phone] Organization [facility] Care Team Providers Care Alfalfa Dehydrator Operator Name Role Phone BethJennifer Unavailable [phone] Renetta Rodriguez Unavailable MarvinNoe Unavailable [phone] Reason for Referral Not Available Allergies, adverse reactions, alerts No known allergies History of medication use Medication Class Instructions Start Date End Date hydroCHLOROthiazide 25 mg Tab TAKE 1 TAB LET BY MOUTH ONCE DAILY 2024-10-12 No Data Available Losartan Potassium 100 mg Tab TAKE 1 TAB LET BY MOUTH ONCE DAILY 2024-11-16 No Data Available Lovastatin 40 mg Tab TAKE 1 TABLET BY MO UT ONCE DAILY WITH EVENING MEAL 2024-10-31 No Data Available Carvedilol 25 mg Tab TAKE 1 TABLET BY MO UT EVERY 12 HOURS WITH FOOD 2024-10-17 No Data Available Alendronate Sodium 70 mg Tab TAKE 1 TABL ET BY MOUTH ONCE A WEEK 2024-02-11 No Data Available Daily Value Multivitamin Tab 1 tablet orally daily 02-08-21 No Data Available Vitamin D3 25 MCG (1000 UT) Cap 1 capsule orally daily 2025-04-24 No Data Available Aspirin EC 81 mg Tab delayed rel once daily No Data Available Problem List Problem Status Onset Date Resolved Date Synopsis Osteoporosis Active 2025-04-24 N/A N/A HLD (hyperlipidemia) Active 2025-04-24 N/A N/A Benign hypertension with sta ge 3a chronic kidney disease Active 2025-04-24 N/A N/A Encounters Encounters Type Facility Date of Service Diagnosis/Co mplaint Home visit for evaluation and management of new patient requiring medically appropriate examination and low level of medical decision making. If using time, at least 30 minutes total time on encounter [facility] [place] 04/24/2025 Age-related osteopor osis without current pathological fractureHyperlipidemia, unspecifiedHypertensive chronic kidney disease w stg 1-4/unsp chr kdnyChronic kidney disease, stage 3aBody mass index (BMI) 24.0-24.9, adult Home visit for evaluation and management of new patient requiring medically appropriate examination and low level of medical decision making. If using time, at least 30 minutes total time on encounter [facility] [place] 04/24/2025 Chronic kidney disea se, stage 3a Home visit for evaluation and management of new patient requiring medically appropriate examination and low level of medical decision making. If using time, at least 30 minutes total time on encounter [facility] [place] 04/24/2025 Chronic kidney disea se, stage 3a Vital Signs Date of Collection Vitals 2025-04-24 08:30:00 Height - 161.29 cmWe ight - 63.5 kgBody Mass Index (BMI) - 24.41 kg/m2BP Diastolic - 78.0 mm[Hg]BP Systolic - 138.0 mm[Hg]Heart Rate - 63.0 /minRespiratory Rate - 18.0 /minO2 % BldC Oximetry - 96.0 % Social History Sex Female History of Procedures Procedures Service Procedure code Service date Servicing provider Phone# Home visit for evaluation and management of new patient requiring medically appropriate examination and low level of medical decision making. If using time, at least 30 minutes total time on encounter [id number] 2025-04-24 No Data Available No Data Availa ble Patient screened for fall risk; no falls in the last year or 1 fall with no injury in the last year 1100F 2025-04-24 No Data Available No Data Avail able Advance care planning discussion documented in medical record [id number] 2025-04-24 No Data Available No Data Avai lable Functional Status Functional Category Effective Dates still drives 2025-04-24 lives with spouse 2025-04-24 independent of ADL's 2025-04-24 Mental Status Status Date no cognitive issues were noted 2025-04-05 1 Assessments Date of Service Assessments 2025-04-24 08:30:00 OsteoporosisHLD (hyp erlipidemia)Benign hypertension with stage 3a chronic kidney disease Plan of Care Date of Service Plans 2025-04-24 08:30:00 chroniccontinue emerson dronate 70 mg once a weekappt for DEXA scan in fallontinue vitamin D3 dailychronic; continue lovastatin 40 mg once dailyheart healthy dietBP controlled; stablecontinue carvedilol 25 mg BID, losartan 100 mg once daiy and hctz 25 mg once dailydiscussed caffeine and sodium intakeencouraged to stay activelast eGFR 56 on 11/2024 Health Concerns Date Concern 2025-04-24 Healthy House Calls is a service that involves a physician or advanced practice provider conducting comprehensive assessments in your patient s home or virtually to address crucial areas such as chronic conditions, quality gaps, social concerns, fall risk prevention, and various screenings. Please note that your patient will remain attributed to you even though they are participating in this service. If you have any questions, please reach out directly to our team at the phone number above.Your patient, Thao Castañeda, 1940, was seen today for a Healthy House Call visit. Patient read rights and responsibilities and consented to treatment. The purpose of this summary is to update you on the patient's current health status and share any relevant findings from the examination. 2025-04-24 Patient has a histor y of chronic lymphocytic leukemia of B cell type diagnosed in 2019. She follows heme/onc every 6 months along with getting bloodwork. Not receiving any treatment, close monitoring.
--- OUTSIDE RECORDS SUMMARY | 2025-09-29 08:36 | XMS_ITS | Clinical Summary ---
Author Organization [address] Address [facility] [place] [address] Care Team Providers Care Valet Attendant Name Role Phone Noe Wong MD Primary Care Provider [phone] Allergies No known active allergies Medications lovastatin (MEVACOR) 40 mg tablet take 1 tablet by oral route every day with the evening meal 0 0 04/05/2015 Active aspirin (ASPIR-LOW) 81 mg tablet take 1 tablet by oral route every day 0 0 10/15/2015 Active multivit-minera n-gvsc-gjqogg (CENTRUM SILVER ULTRA WOMEN'S) tablet take 1 tablet by oral route every day 0 0 10/15/2015 Active hydroCHLOROthia zide (HYDRODIURIL) 25 mg tablet Take 1 tablet (25 mg total) by mouth daily 11/07/2022 Active losartan (COZAAR) 100 mg tablet Take 1 tablet (100 mg total) by mouth daily 08/27/2022 Active carvediloL (COREG) 25 mg tablet Take [...] History Date Comments Type 2 diabetes mellitus Hypertension Family History Medical History Relation Name [...] on file 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 Gender Identity Not on file Sexual Orientation Not on file Last Filed Vital Signs Vital Sign Reading Time Taken Comments Blood Pressure 198/68 04/12/2025 11:34 AM CDT took bp twice 1st one 204/80, thrid time bp check 177/75 right arm sitting Pulse 87 04/12/2025 11:34 AM CDT Temperature 36.2 C (97.2 F) 04/12/2025 11:34 AM CDT Respiratory Rate 18 04/12/2025 11:3 4 AM CDT Oxygen Saturation 95% 04/12/2025 11: 34 AM CDT Inhaled Oxygen Concentration - - Weight 65.3 kg (144 lb) 04/12/2025 11:3 4 AM CDT Height 157.5 cm (5' 2) 04/12/2025 11:3 4 AM CDT Body Mass Index 26.34 04/12/2025 11:34 AM CDT Plan of Treatment Health Maintenance Due Date Last Done Comments Depression Screening 1940 Fall Risk Assessment 1940 Osteoporosis Screening-Bone Density Scan 1940 DTaP/Tdap/Td Vaccine (1 - Tdap) 1949 Hepatitis B Screening 1956 Zoster Vaccine (1 of 2) 1957 Well Visit 65+ 2003 Covid-19 Vaccine (3 - 2024-2 6 season) 2025 12/17/2020, 11/26/2020 Influenza Vaccine (#1) 2025 , 08/02/2019, 07/02/2018, Additional history exists Pneumococcal vaccine 65+ Completed 07/02/2018, 07/06 Insurance [facility] Care Teams Valet Attendant Relationship Specialty Start Date End Date Noe Wong MD PCP - General Family Practice 05/22/23
--- OUTSIDE RECORDS SUMMARY | 2025-09-29 08:36 | XMS_ITS | Clinical Summary ---
Author Organization [facility] Address [address] [place] [address] Care Team Providers Care Narrow Gauge Operator Name Role Phone Noe Wong MD Primary Care Provider [phone] Social History Tobacco Use Types Packs/Day Years Used Date Smoking Tobacco: Never Assessed Comments Unknown Sex and Gender Information Value Date Recorded Sex Assigned at Female 05/15/2025 9:51 AM CDT Legal Sex Female 3:00 PM CDT Gender Identity Not on file Sexual Orientation Not on file Plan of Treatment Health Maintenance Due Date Last Done Comments DTaP, Tdap and Td Vaccines ( 1 - Tdap) 1957 Pneumococcal Vaccine: 50+ Ye ars (1 of 1 - PCV) 1988 Zoster Vaccines (1 of 2) 1988 Annual Medicare Wellness Visit 2003 RSV Immunization or 60+ Years (1 - 1-dose 75+ series) 2013 COVID-19 Vaccine ( - 2024-2 6 season) 2025 Influenza Adult (#1) 2025 Hepatitis A Vaccines Aged Out No long er eligible based on patient's age to complete this topic Meningococcal B Vaccine Aged Out No l onger eligible based on patient's age to complete this topic Meningococcal Vaccine Aged Out No maye rosa eligible based on patient's age to complete this topic RSV Immunizations Under 20 Months Aged Out No longer eligible based on patient's age to complete this topic Insurance [employer] Care Teams Narrow Gauge Operator Relationship Specialty Start Date End Date Noe Wong MD [address] [place], [place] [id number] PCP - General FAMILY PRACTICE 05/12/24
[2025-09-29 09:15] LABS: Hematocrit 38.1 % (37.0-47.0); Hemoglobin 12.6 g/dL (12.0-15.0); Immature Platelet Fraction Pct 3.4 % (0.9-11.2); Mean Corpuscular HGB Conc 33.1 g/dl (32-36); Mean Corpuscular Hemoglobin 30.6 pg (26-34); Mean Corpuscular Volume 92.5 fl (80-100); Platelet Count Result 110 k/mm3 (150-375); Red Blood Count 4.12 M/mm3 (4.2-5.4); White Blood Count 47.5 K/mm3 (4.5-10.0)
[2025-09-29 09:29] LABS: Hemoglobin A1C 6.1 % (<5.7)
[2025-09-29 09:41] LABS: Alanine Aminotransferase 17 U/L (6-35); Albumin Level 4.3 g/dL (3.5-5.1); Alkaline Phosphatase 55 U/L (38-126); Anion Gap 10 mmol/L (4-12); Aspartate Amino Transferase 25 U/L (14-36); Bilirubin,Total 0.5 mg/dL (0.2-1.3); Blood Urea Nitrogen 27 mg/dL (7-17); Calcium 9.3 mg/dL (8.4-10.2); Carbon Dioxide 25 mmol/L (22-30); Chloride 105 mmol/L (98-107); Estimated Glomerular Filt Rate 51; Glucose 119 mg/dL (65-110); Magnesium 1.9 mg/dL (1.6-2.3); Potassium 3.8 mmol/L (3.4-5.0); Sodium 140 mmol/L (137-145); Total Protein 7.1 g/dL (6.3-8.2)
[2025-09-29 09:43] LABS: Lymphocytes Absolute Manual 35.15 K/mm3 (1.1-4.5); Lymphocytes Percent Manual 74 % (18-44); Monocytes Absolute Manual 0.95 K/mm3 (0.1-0.90); Monocytes Percent Manual 2 % (3-9); Neutrophils Percent Manual 9 % (46-73); Total Cells Counted 100
[2025-09-29 09:44] LABS: Eosinophils Absolute Manual 0.95 K/mm3 (0.02-0.50); Eosinophils Percent Manual 2 % (0-4); Smudge Cells MODERATE
[2025-09-29 09:45] LABS: Anisocytosis 1+; Schistocytes None Seen
[2025-09-29 10:29] LABS: Vitamin B12 818.0 pg/mL (239-931)
== END 2025-09-29 08:35 | disposition home or self-care (01) ==
PROVIDERS: PCP Family Medicine; Visit Provider Family Medicine
DX: E55.9 Vitamin D deficiency, unspecified (principal); R73.03 Prediabetes; I10 Essential (primary) hypertension; C91.10 Chronic lymphocytic leukemia of B-cell type not having achieved remission; Z86.73 Personal history of transient ischemic attack (TIA), and cerebral infarction without residual deficits; Z00.00 Encounter for general adult medical examination without abnormal findings; Z53.20 Procedure and treatment not carried out because of patient's decision for unspecified reasons
CPT/HCPCS: 36415; 80053; 82306; 82607; 83036; 83735; 85025; 85055